=== PATIENT | female | born 2000 | race African-American/Black ===

== ENCOUNTER 2021-02-08 23:37 | Emergency (ER) | payer SELFPAY ==
[2021-02-09] MEDS ORDERED: ACETAMINOPHEN 500 MG TABLET (FP) PO ONE (01:14)
[2021-02-09] MEDS ORDERED: ACETAMINOPHEN 325 MG TABLET (FP) ONE (01:17)
[2021-02-09 03:43] VITALS: BP 122/72; PULSE 79; TEMP 98.1
== END 2021-02-09 05:19 | disposition home or self-care (01) ==
LOC: JER 23:37
DX: M54.2 Cervicalgia (principal); M54.5 Low back pain; R10.84 Generalized abdominal pain; Z3A.21 21 weeks gestation of pregnancy
CPT/HCPCS: 76815-TC; 86850; 86900; 86901; 99284-25